=== PATIENT | male | born 2000 | race Caucasian/White ===

== ENCOUNTER 2023-06-25 09:55 | Emergency (ER) | payer OTHER ==
[2023-06-25] MEDS ORDERED: ONDANSETRON ODT 4 MG TABLET TL STA (10:26)
--- NOTE | 2023-06-25 11:19 | ED Physician Documentation ---
PD HPI NVD - Stated complaint Stated Complaint: NAUSEA/VOMITING - Chief complaint Chief Complaint: Abd Pain - History obtained from History obtained from: Patient - Additonal information Additional information: Patient is a 23-year-old male with no significant prior medical history presenting for evaluation of nausea and 1 episode of emesis this morning. Patient states he ate half a pancake this morning. While at work at the [employer] he started feeling nauseous and went to the [facility] for evaluation. Reports that they gave him some water and he had 1 episode of clear emesis but did not vomit any food. He he was then told he should come to the emergency department and EMS was called. Patient has not received any medications for nausea and states he feels better at this time. He states that in high school he had numerous episodes where he would often have nausea with no clear etiology found. He reports having no abdominal surgeries but did have an upper endoscopy in high school without any abnormal findings. He does not currently take any medications. Reports having a steak for dinner last night. No diarrhea. No chest pain or shortness of air. Review of Systems Constitutional: denies: Fever Cardiac: denies: Chest pain / pressure Respiratory: denies: Dyspnea GI: reports: Nausea, Vomiting. denies: Abdominal Pain, Diarrhea, Hematemesis : denies: Dysuria PD PAST MEDICAL HISTORY - Past Medical History Past Medical History: Yes Psych: Depression, Anxiety Other Past Medical History: Patient denies any past medical history except depression and anxiey. Patient denies taking any medications for depression or anxiety. - Past Surgical History Past Surgical History: No - Present Medications Home Medications: Ambulatory Orders Medication Instructions Recorded Confirmed Ondansetron Odt [Zofran] 4 mg TL Q6H PRN #10 tablet 06/25/23 - Allergies Allergies/Adverse Reactions: Allergies Allergy/AdvReac Type Severity Reaction Status Date / Time No Known Drug Allergies Allergy Verified 06/25/23 10:14 - Social History Does the pt smoke?: No Smoking Status: Never smoker Does the pt drink ETOH?: Yes Does the pt have substance abuse?: No - Immunizations Immunizations are current?: Yes - POLST Patient has POLST: No PD ED PE NORMAL - General General: Alert and oriented X 3, No acute distress, Well developed/nourished - HEENT HEENT: Atraumatic, Moist mucous membranes, Pharynx benign - Neck Neck: Supple, no meningeal sign - Cardiac Cardiac: RRR, No murmur - Respiratory Respiratory: No respiratory distress, Clear bilaterally - Abdomen Abdomen: Normal bowel sounds, Soft, Non tender, Non distended - Derm Derm: Warm and dry - Neuro Neuro: Normal speech Results - Vitals Vitals: Vital Signs - 24 hr 06/25/23 06/25/23 10:04 11:23 Temperature 36.7 C 36.6 C Heart Rate 100 96 Respiratory 20 16 Rate Blood Pressure 136/88 H 115/81 H O2 Saturation 100 96 Oxygen O2 Source Room air PD Medical Decision Making - ED course Complexity details: re-evaluated patient ED course: Patient is a 23-year-old presenting for evaluation of nausea this morning with 1 episode of emesis. He has had these episodes previously when in high school with no clear etiology. Patient states he is feeling better here. His abdominal exam is benign. His vital signs appear stable and he is only had 1 episode of emesis. Clinically he does not appear dehydrated and thus we have decided to hold off on labs and IV fluids at this time and see if he responds to p.o. Zofran and oral challenge. Patient tolerated both of these well and is able to eat crackers and drink water without any difficulty. I repeated my abdominal exam and it still is benign without any tenderness elicited. At this time we will continue with supportive care and he is advised on concerning symptoms to return for. Departure - Departure Disposition: 01 Home, Self Care Clinical Impression: Nausea & vomiting Condition: Stable Instructions: ED Nausea Vomiting Follow-Up: NOEL Yi [Provider Group] Prescriptions: Ondansetron Odt [Zofran] 4 mg TL Q6H PRN #10 tablet PRN Reason: Nausea / Vomiting Comments: I have sent a prescription for antinausea medications to the [facility] pharmacy in [place]. I would recommend a bland diet today. If you develop any new or worsening symptoms please consider return to the emergency department. Forms: PCP List Discharge Date/Time: 06/25/23 11:23
[2023-06-25 11:33] VITALS: BP 115/81; O2SAT 96
== END 2023-06-25 11:23 | disposition home or self-care (01) ==
LOC: ED 09:55
DX: R11.2 Nausea with vomiting, unspecified (principal)
CPT/HCPCS: 99283; Q0162